=== PATIENT | female | born 1945 | race Caucasian/White ===

== ENCOUNTER 2018-01-04 08:51 | Day surgery (SDC) | payer MEDICARE, BC ==
[~2018-01-04] VITALS: Ht 154.9 cm; Wt 51.7 kg
[~2018-01-04 08:51] MED LIST: Aspir 8181 MG; BUPR100 PO; CALCIUM CITRAT1 EAC6 PO; CELE200; CITA20 PO; ERGO400; ETAN50I INJ; ETOD500 PO; FOLI1 PO; GABA100; GLUCOSAMIN-CHO1 EACH PO; GLUCOSAMINE &1 EACH PO; METTREX2.5; OXYACE7.5T PO; RISEDRONATE
== END 2018-01-04 10:30 | disposition home or self-care (01) ==
LOC: ORSCSDS 08:51
PROVIDERS: Internal Medicine Gastroenterology
PROC: 0DBH8ZX Excision of Cecum, Via Natural or Artificial Opening Endoscopic, Diagnostic (ICD-10-PCS; principal; 2018-01-04 10:30)
PROC: 0DBM8ZX Excision of Descending Colon, Via Natural or Artificial Opening Endoscopic, Diagnostic (ICD-10-PCS; principal; 2018-01-04 10:30)
DX: Z12.11 Encounter for screening for malignant neoplasm of colon (principal); D12.0 Benign neoplasm of cecum; D12.2 Benign neoplasm of ascending colon; K64.8 Other hemorrhoids; K57.30 Diverticulosis of large intestine without perforation or abscess without bleeding; Z86.010 Personal history of colon polyps; Z87.891 Personal history of nicotine dependence; M06.9 Rheumatoid arthritis, unspecified; Z79.899 Other long term (current) drug therapy
CPT/HCPCS: 88305; J7120

== ENCOUNTER 2021-01-01 09:01 | Day surgery (SDC) | payer MEDICARE, BC ==
[~2021-01-01] VITALS: Ht 149.9 cm; Wt 58.4 kg
== END 2021-01-01 11:30 | disposition home or self-care (01) ==
LOC: ORSCSDS 09:01
DX: Z12.11 Encounter for screening for malignant neoplasm of colon (principal); Z86.010 Personal history of colon polyps; D12.0 Benign neoplasm of cecum; D12.3 Benign neoplasm of transverse colon; K57.30 Diverticulosis of large intestine without perforation or abscess without bleeding; Z79.899 Other long term (current) drug therapy
CPT/HCPCS: 88305; J0330; J0461; J2405; J2704; J7120

== ENCOUNTER 2024-01-02 08:23 | Day surgery (SDC) | payer MEDICARE, BC ==
[~2024-01-02] VITALS: Ht 149.9 cm; Wt 57.6 kg
[2024-01-02] MEDS ORDERED: MERIBIN5 MG (09:12)
[2024-01-02] MEDS ORDERED: B-COMPLEX WITH1 EAC2 (09:14)
[2024-01-02] MEDS ORDERED: Lactated Ringer's 1,000 ML IV ONE ×2 (09:56→09:59)
[2024-01-02] MEDS ORDERED: propofoL 50 ML IV ONE (09:59)
[2024-01-02 11:02] VITALS: BP 140/73
== END 2024-01-02 11:04 | disposition home or self-care (01) ==
LOC: ORSCSDS 08:23
PROVIDERS: Specialist
PROC: 0DJD8ZZ Inspection of Lower Intestinal Tract, Via Natural or Artificial Opening Endoscopic (ICD-10-PCS; principal; 2024-01-02 10:00)
DX: Z12.11 Encounter for screening for malignant neoplasm of colon (principal); Z86.0101 Personal history of adenomatous and serrated colon polyps; K64.8 Other hemorrhoids; K57.30 Diverticulosis of large intestine without perforation or abscess without bleeding; F32.A Depression, unspecified; Z87.891 Personal history of nicotine dependence; Z79.899 Other long term (current) drug therapy
CPT/HCPCS: J2704; J7120